=== PATIENT | male | born 1955 | race Caucasian/White ===

== ENCOUNTER 2022-11-16 08:13 | Day surgery (SDC) | payer MEDICARE, SELFPAY ==
--- NOTE | 2022-11-15 11:03 | P.CONAN_ITS ---
Documented by User: Yumiko Modi NP 11/15/22 11:03 HPI - Anesthesia Eval Consult details Narrative: 67yo M for Colonoscopy [facility] Past Medical History Medical History History of melanoma Hx of colonic polyp Hx of sarcoidosis Surgical History Surgical History Hx of colonoscopy Hx of total hip arthroplasty Social History Social History Patient Tobacco Use Status: Former Tobacco user Are you DNR?: No Advance Directives: No Advance Directives Information Provided: Yes Meds Allergies Allergy/AdvReac Type Severity Reaction Status Date / Time No Known Allergies Allergy Verified 11/15/22 09:46 Home Medications Medication Instructions Recorded Confirmed Last Taken Type krill oil 11/15/22 11/08/22 History Exam Exam Date and Time: November 15, 2022 1103 Assessment and Plan Assessment Anesthesia Assessment: Chart Reviewed Documented by User: Blanca Barbour MD 11/16/22 09:23 [facility] Past Medical History Medical History History of melanoma Hx of colonic polyp Hx of sarcoidosis Surgical History Surgical History Hx of colonoscopy Hx of total hip arthroplasty History of Problems with Anesthesia: No Social History Social History Patient Tobacco Use Status: Former Tobacco user Are you DNR?: No Advance Directives: No Advance Directives Information Provided: Yes Meds Allergies Allergy/AdvReac Type Severity Reaction Status Date / Time No Known Allergies Allergy Verified 11/15/22 09:46 Home Medications Medication Instructions Recorded Confirmed Last Taken Type krill oil 11/15/22 11/08/22 History Exam Airway Mallampati Class: II TM Dist: >3cm Neck ROM: Full Loose/Missing/Broken Teeth: No Heart: RRR Lungs: CTA Assessment and Plan Assessment Anesthesia Assessment: Anesthesia Plan Discussed Final Anesthetic Review History of Problems with Anesthesia: No NPO: Yes ASA Class: II Final Preanesthetic Review: Meds/Allgs Chart Reviewed, Consent Obtained/Reviewed and Anes Risks/Benef Reviewed Patient Risk: Low Procedure Risk: Low Anesthetic Plan Anesthetic Plan: MAC: Disposition: Standard PACU
[2022-11-16 08:33] VITALS: BMI 30.4
[2022-11-16 08:35] VITALS: BP 134/92; PULSE 57; RESP 18; TEMP 36.1; O2SAT 98
[2022-11-16] MEDS: Lactated Ringers 1,000 ML 100 ML IVCONT (08:54)
--- NOTE | 2022-11-16 10:22 | P.HPSUR_ITS ---
Pre-Procedural Eval Section A Date of Service: 11/16/22 Section B Chief Complaint: Encounter for screening for malignant neoplasm of Details of Present Illness: see H&P no changes Relevant Family History (Specify if Yes): No Relevant Social History: None Present Medications: see Short Stay Collaborative assessment Medical History: No relevant PMH History of Previous Operations: No relevant previous surgery Allergies: Allergies Allergy/AdvReac Type Severity Reaction Status Date / Time No Known Allergies Allergy Verified 11/15/22 09:46 Review of Systems Sugical H&P ROS: Negative: Constitution, Cardiovascular, Respiratory, Neurolo gical, Psychiatric, Hem-Onc, Allergic/Immunologic, Gastrointestinal, Genitourinary, Musculoskeletal, Integumentary, Endocrine and Eyes/Ears/Nose/Throat Exam Surgical H&P Exam: Normal: HEENT, Normal: Heart, Normal: Lungs, Normal: Extremities, Normal: Abdomen, Normal: Skin and Normal: Neurological Plan Diagnosis/Plan: Unchanged I have reviewed the history and physical and performed a pertinent physical examination on my patient. No changes have occurred unless specified. Time Spent With Patient Time: Total time managing care of this patient today ____ minutes.
--- NOTE | 2022-11-16 10:46 | PM.OP ---
Brief Operative Note Date of Service: 11/16/22 Pre-op diagnosis: screening Procedure: colonoscopy Surgeon: Gareth Damico Anesthesia: MAC Was an Child [employer] Youth Program Assistant used for this Procedure?: No Estimated blood loss (mL): 0 Pathology: none sent Condition: stable Disposition: PACU
[2022-11-16 10:54] VITALS: BP 98/41; PULSE 49; RESP 16; TEMP 36.6; O2SAT 96
--- NOTE | 2022-11-16 11:06 | OP_ITS ---
DATE OF SERVICE: 11/16/2022 SURGEON: Gareth Damico MD INDICATIONS: Colon cancer screening and prior history of adenomatous colon polyps. PREOPERATIVE DIAGNOSIS: POSTOPERATIVE DIAGNOSIS: PROCEDURE PERFORMED: Colonoscopy to the terminal ileum. ESTIMATED BLOOD LOSS: COMPLICATIONS: ANESTHESIA: Monitored anesthesia care. ASSISTANTS: SPECIMENS: DESCRIPTION OF PROCEDURE: A history and physical was performed. The risks and benefits of the procedure were explained to the patient. Informed consent was obtained. The patient was placed in the left lateral decubitus position. A digital rectal exam was performed and was found to be normal. The Olympus pediatric video colonoscope was introduced into the rectum and advanced to the cecum without difficulty. The cecum was identified by transillumination, palpation, and identification of ileocecal valve. Examination was performed. The scope was removed. He tolerated the procedure well. He was returned to the recovery area in stable condition. FINDINGS: The terminal ileum was normal. The visualized colonic mucosa was normal. The quality of the prep was good. No polyps were identified. There was mild sigmoid diverticulosis. Retroflexed examination was normal. IMPRESSION: Normal screening colonoscopy. RECOMMENDATION: 1. Follow up as needed. 2. Repeat colonoscopy is recommended in 10 years for average risk individuals. MD JAQUELIN Patel/JAJA / [id number]
[2022-11-16 11:09] VITALS: BP 96/51; PULSE 45; RESP 16; O2SAT 96
[2022-11-16 11:24] VITALS: BP 111/63; PULSE 48; RESP 16; TEMP 36.6; O2SAT 97
== END 2022-11-16 12:00 | disposition home or self-care (01) ==
PROVIDERS: PCP Internal Medicine; Visit Provider Internal Medicine Gastroenterology
PROC: 0DJD8ZZ Inspection of Lower Intestinal Tract, Via Natural or Artificial Opening Endoscopic (ICD-10-PCS; CPT 45378; principal; 2022-11-16 09:40)
DX: Z12.11 Encounter for screening for malignant neoplasm of colon (principal); K57.30 Diverticulosis of large intestine without perforation or abscess without bleeding; Z86.010 Personal history of colon polyps
CPT/HCPCS: G0105